=== PATIENT | male | born 1975 | race Caucasian/White ===

== ENCOUNTER 2018-02-19 22:01 | Observation (INO) | payer OTHER ==
[~2018-02-19] VITALS: Ht 185.4 cm; Wt 78.7 kg
[2018-02-19 22:28] VITALS: BP 123/66
[2018-02-19 23:07] LABS: ABSOLUTE BASOPHILS 0.1 thou/uL (0.0-0.2); ABSOLUTE EOSINOPHILS 0.3 thou/uL (0.0-0.7); ABSOLUTE LYMPHOCYTES 3.5 thou/uL (0.8-5.3); ABSOLUTE MONOCYTES 1.3 thou/uL (0.0-1.2); BASOPHILS 1.1 %; EOSINOPHILS 2.7 %; HEMATOCRIT 44.2 % (42.0-52.0); HEMOGLOBIN 15.1 gm/dL (14.0-18.0); LYMPHOCYTES 31.1 %; MCH 30.6 pg (26.0-34.0); MCHC 34.2 g/dL (28.0-37.0); MCV 89.5 fL (80.0-100.0); MONOCYTES 11.8 %; MPV 7.5 fl. (7.2-11.1); NUCLEATED RBCS 0 /100WBC; PLATELET COUNT* 254 thou/uL (150-400); POLYS 53.3 %; RBC 4.94 mil/uL (4.50-6.00); RDW-CV 13.3 % (10.5-14.5); WBC 11.3 thou/uL (4.0-11.0)
[2018-02-19] MEDS ORDERED: PREDNISONE 10 M10 MG PO (23:15)
[2018-02-19 23:16] LABS: ANION GAP 9 mmol/L (7-16); BUN 22 mg/dL (7-18); CHLORIDE 105 mmol/L (98-107); CO2 27 mmol/L (21-32); CREATININE 1.2 mg/dL (0.6-1.3); GLUCOSE 90 mg/dL (70-99); POTASSIUM 3.6 mmol/L (3.5-5.1); SODIUM 141 mmol/L (136-145)
[2018-02-19] MEDS ORDERED: LEVOFLOXACIN750 MG PO (23:16)
[2018-02-19 23:22] LABS: ALBUMIN 3.6 g/dL (3.4-5.0); ALKALINE PHOSPHATASE 61 U/L (46-116); SGOT 16 U/L (15-37); SGPT 26 U/L (30-65); TROPONIN-I LEVEL <0.06 ng/mL (<0.06)
[2018-02-20 01:15] VITALS: BP 140/91
[2018-02-20 02:15] VITALS: BP 116/66
[2018-02-20 08:00] VITALS: BP 131/69
--- NOTE | 2018-02-20 11:32 | EKG ---
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: PRESLEY Rivas : 1975 Requested By: India Carr Order Number: [id number] Reading MD: Jaime Caldwell Measurements Intervals [place] Rate: 60 P: 77 AL: 132 QRS: 56 QRSD: 96 T: 62 QT: 371 QTc: 371 Interpretive Statements Sinus rhythm ST elev, probable normal early repol pattern Baseline wander in lead(s) II,III,aVF No previous ECG available for comparison Electronically Signed On 02-20-2018 11:32:14 CDT by Jaime Caldwell [email or web address] <ELECTRONICALLY SIGNED> By: Jaime Caldwell MD, [facility] 02/20/18 1132 [id number] [id number] Jaime Caldwell MD, [facility] /EPI
--- NOTE | 2018-02-20 11:32 | EKG ---
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 Rivas : 1975 Requested By: India Carr Order Number: [id number] MD: Jaime Caldwell Measurements Intervals [place] Rate: 59 P: 65 DE: 138 QRS: 51 QRSD: 90 T: 56 QT: 379 QTc: 376 Interpretive Statements Sinus rhythm ST elev, probable normal early repol pattern Baseline wander in lead(s) II,III,aVF,V1,V2,V3,V4,V5,V6 No previous ECG available for comparison Electronically Signed On 02-20-2018 11:32:10 CDT by Jaime Caldwell [email or web address] <ELECTRONICALLY SIGNED> By: Jaime Caldwell MD, [facility] 02/20/18 1132 2307 2307 Jaime Caldwell MD, FAC /EPI
[2018-02-20 16:12] VITALS: BP 120/70
[2018-02-20 20:05] VITALS: BP 112/52
[2018-02-21 08:00] VITALS: BP 125/54
[2018-02-21] MEDS ORDERED: HYDROCODON-ACE1 EAC7 PO (14:49)
[2018-02-21] MEDS ORDERED: PREDNISONE 10 M10 MG PO (14:50)
[2018-02-21 15:02] VITALS: BP 125/54
[2018-02-21] MEDS ORDERED: CEFDINIR300 MG PO (15:40)
[2018-02-21] MEDS ORDERED: LEVAQUIN 750 M750 MG PO (16:12)
== END 2018-02-21 15:51 | disposition home or self-care (01) ==
LOC: M.ERS 22:01 → M.3W 02-20 00:29 → M.TBA-ER 02-20 00:29 → M.3W 02-20 01:28
PROVIDERS: Physician Assistant; ADMIT Internal Medicine
DX: J20.9 Acute bronchitis, unspecified (principal); J44.1 Chronic obstructive pulmonary disease with (acute) exacerbation; B34.9 Viral infection, unspecified; E86.0 Dehydration; F17.210 Nicotine dependence, cigarettes, uncomplicated; Z72.89 Other problems related to lifestyle; Z98.890 Other specified postprocedural states